=== PATIENT | male | born 1980 | race African-American/Black ===

== ENCOUNTER 2016-12-12 02:23 | Emergency (ER) | payer MEDICAID ==
[~2016-12-12] VITALS: Ht 172.7 cm; Wt 81.6 kg
== END 2016-12-12 05:10 | disposition home or self-care (01) ==
LOC: CED 02:23
DX: N34.2 Other urethritis (principal); F17.200 Nicotine dependence, unspecified, uncomplicated
CPT/HCPCS: 96372; 99283; J0696

== ENCOUNTER 2017-01-16 21:11 | Emergency (ER) | payer MEDICAID ==
[~2017-01-16] VITALS: Ht 172.7 cm; Wt 86.2 kg
== END 2017-01-16 22:50 | disposition left against medical advice (07) ==
LOC: CED 21:11
DX: Z53.21 Procedure and treatment not carried out due to patient leaving prior to being seen by health care provider (principal)
CPT/HCPCS: 87651; J2270